=== PATIENT | male | born 1970 | race African-American/Black ===

== ENCOUNTER 2024-06-18 04:46 | Inpatient (IN) | payer MEDICARE, MEDICAID ==
[~2024-06-18] VITALS: Ht 170.2 cm; Wt 68.5 kg
[2024-06-18 06:32] LABS: BASOPHILS % 0.5 % (0.0-2.0); HEMATOCRIT. 34.2 % (42.0-52.0); HEMOGLOBIN. 11.3 g/dL (14.0-18.0); LYMPHOCYTES % 25.1 % (20.0-50.0); MEAN CORPUSCULAR HEMOGLOBIN 27.2 pg (28.0-32.0); MEAN CORPUSCULAR VOLUME 82.4 fL (80.0-94.0); MEAN PLATELET VOLUME 8.2 fl (7.4-10.4); MONOCYTES % 13.7 % (2.0-8.0); NEUTROPHILS % 59.7 % (40.0-76.0); PLATELET 173 x1000/uL (130-400); RED BLOOD CELL COUNT 4.14 mill/uL (4.7-6.1); RED CELL DISTRIBUTION WIDTH 18.3 % (11.6-14.6); WHITE BLOOD COUNT 6.4 x1000/uL (4.5-11.0)
[2024-06-18 06:36] LABS: CHLORIDE 99 mEq/L (98-107); POTASSIUM 4.3 mEq/L (3.5-5.1); SODIUM 137 mEq/L (136-145)
[2024-06-18 06:37] LABS: CALCIUM 9.1 mg/dL (8.7-10.4); CARBON DIOXIDE 26 mEq/L (21-32)
[2024-06-18 06:42] LABS: GLUCOSE 106 mg/dL (70-105); UREA NITROGEN BLOOD 46 mg/dL (9-23)
[2024-06-18 06:44] LABS: ALANINE AMINOTRANSFERASE 14 IU/L (10-49); ALBUMIN 4.3 g/dL (3.2-4.8); ASPARTATE AMINOTRANSFERASE 24 IU/L (<34); BILIRUBIN DIRECT 1.4 mg/dL (<=3.0); BILIRUBIN TOTAL 2.4 mg/dL (0.1-1.0)
[2024-06-18 06:45] LABS: PROTEIN TOTAL 7.8 g/dL (6.0-8.3)
[2024-06-18 06:49] LABS: CREATININE 8.1 mg/dL (0.6-1.3)
[2024-06-18 06:59] LABS: INR 1.1; PROTHROMBIN TIME 11.7 sec (9.6-11.0)
[2024-06-18] MEDS: MORPHINE SULFATE 4 MG/ML INJ (FOR IV/IM USE) IV STA (07:09)
[2024-06-18] MEDS: ONDANSETRON HCL 4MG/2ML INJ IV STA (07:10)
[2024-06-18] MEDS ORDERED: CLONIDINE 0.1MG TABLET PO PRN (13:00)
[2024-06-18] MEDS ORDERED: ACETAMINOPHEN 325MG TABLET PO PRN (13:00)
[2024-06-18] MEDS ORDERED: ONDANSETRON HCL 4MG/2ML INJ IV PRN ×2 (13:00→18:30)
[2024-06-18] MEDS ORDERED: DOCUSATE SODIUM 100MG CAPSULE PO PRN (13:00)
[2024-06-18] MEDS ORDERED: DEXT 5%/0.45% NACL 1000ML 1,000 ML IV SCH (13:00)
[2024-06-18] MEDS ORDERED: IPRATROPIUM/ALBUTEROL 0.5-3(2.5)MG/3ML NEB HHN PRN (13:00)
[2024-06-18] MEDS ORDERED: MORPHINE SULFATE 2 MG/ML INJ (NOT FOR IM USE) IV PRN (13:00)
[2024-06-18] MEDS ORDERED: NALOXONE HCL 0.4MG/ML VIAL IV PRN (13:15)
[2024-06-18] MEDS: PANTOPRAZOLE SODIUM 40 MG/VIAL IV SCH (13:21)
[2024-06-18] MEDS: MORPHINE SULFATE 2 MG/ML INJ (NOT FOR IM USE) IV NR (13:22)
[2024-06-18] MEDS: DILTIAZEM HCL 30MG TABLET PO SCH (15:40)
[2024-06-18] MEDS ORDERED: BUPIVACAINE HCL/PF 0.5% (5MG/ML) 10ML ONE (15:44)
[2024-06-18] MEDS: DEXT 5%/0.45% NACL KCL 20MEQ/L 1,000 ML IV SCH (15:45)
[2024-06-18] MEDS ORDERED: ACETAMINOPHEN 1000MG/100ML 100 ML IV ONE (17:33)
[2024-06-18] MEDS ORDERED: SUGAMMADEX SODIUM 200MG/2ML VIAL IV ONE (17:46)
[2024-06-18] MEDS ORDERED: ALBUMIN HUMAN 12.5G/250ML (5%) IV ONE (17:46)
[2024-06-18] MEDS: HYDROMORPHONE HCL/PF 1MG/ML INJ IV PRN (18:43)
[2024-06-18 21:00] VITALS: BP 120/76; PULSE 81; RESP 18; TEMP 36.6404
[2024-06-18] MEDS: ONDANSETRON HCL 4MG/2ML INJ IV PRN (22:37)
[2024-06-18] MEDS: MORPHINE SULFATE 4 MG/ML INJ (FOR IV/IM USE) IV PRN (22:39)
[2024-06-18] MEDS: DEXT IV SCH (22:39)
[2024-06-18] MEDS: NACL KCL IV SCH (22:39)
[2024-06-18] MEDS: POTASSIUM CHLORIDE IV SCH (22:39)
[2024-06-18 22:41] LABS: HEPATITIS B SURFACE ANTIGEN NEGATIVE (Negative)
[2024-06-18 23:02] LABS: HEPATITIS A AB IGM NEGATIVE (Negative); HEPATITIS B CORE AB IGM NEGATIVE (Negative)
[2024-06-18 23:03] LABS: HEPATITIS C AB NON REACTIVE (Neg) (Negative)
[2024-06-19] VITALS (13 sets, daily range): BP systolic 102–130; BP diastolic 60–82; PULSE 71–86; RESP 16–19; TEMP 36.22512–36.89184; O2SAT 98–100
[2024-06-19 07:41] LABS: CHLORIDE 99 mEq/L (98-107); SODIUM 135 mEq/L (136-145)
[2024-06-19 07:42] LABS: CARBON DIOXIDE 23 mEq/L (21-32)
[2024-06-19 07:43] LABS: BASOPHILS % 0.2 % (0.0-2.0); CALCIUM 8.9 mg/dL (8.7-10.4); HEMOGLOBIN. 10.1 g/dL (14.0-18.0); LYMPHOCYTES % 18.4 % (20.0-50.0); MEAN CORPUSCULAR HEMOGLOBIN 26.4 pg (28.0-32.0); MEAN CORPUSCULAR HGB CONC 31.6 g/dL (31.0-37.0); MEAN CORPUSCULAR VOLUME 83.6 fL (80.0-94.0); MEAN PLATELET VOLUME 8.3 fl (7.4-10.4); MONOCYTES % 8.6 % (2.0-8.0); NEUTROPHILS % 72.8 % (40.0-76.0); PLATELET 175 x1000/uL (130-400); RED BLOOD CELL COUNT 3.83 mill/uL (4.7-6.1); RED CELL DISTRIBUTION WIDTH 18.6 % (11.6-14.6); WHITE BLOOD COUNT 7.1 x1000/uL (4.5-11.0)
[2024-06-19 07:45] LABS: PROTHROMBIN TIME 11.6 sec (9.6-11.0); UREA NITROGEN BLOOD 57 mg/dL (9-23)
[2024-06-19 07:48] LABS: GLUCOSE 121 mg/dL (70-105)
[2024-06-19 07:49] LABS: ALANINE AMINOTRANSFERASE 10 IU/L (10-49); ALBUMIN 4.3 g/dL (3.2-4.8)
[2024-06-19 07:50] LABS: ASPARTATE AMINOTRANSFERASE 22 IU/L (<34); BILIRUBIN TOTAL 1.7 mg/dL (0.1-1.0); PHOSPHORUS 6.2 mg/dL (2.5-4.9); PROTEIN TOTAL 7.3 g/dL (6.0-8.3)
[2024-06-19 08:16] LABS: CREATININE 8.6 mg/dL (0.6-1.3)
[2024-06-19] MEDS: MORPHINE SULFATE 2 MG/ML INJ (NOT FOR IM USE) IV PRN (08:17)
[2024-06-19] MEDS: ENOXAPARIN 30MG/0.3ML SYR SUBCUT SCH (08:19)
[2024-06-20 04:00] VITALS: BP 96/58; PULSE 80; RESP 18; TEMP 36.72516; O2SAT 98
[2024-06-20] MEDS: ACETAMINOPHEN 325MG TABLET PO PRN (06:48)
[2024-06-20 08:00] VITALS: BP 89/48; PULSE 72; RESP 18; TEMP 36.3918; O2SAT 100
[2024-06-20 08:20] LABS: CLARITY URINE CLEAR (CLEAR); COLOR URINE DARK YELLOW (YELLOW); GLUCOSE URINE NEGATIVE (NEGATIVE); KETONES URINE NEGATIVE (NEGATIVE); LEUKOCYTE ESTERASE URINE 3+ (NEGATIVE); NITRITE URINE NEGATIVE (NEGATIVE); OCCULT BLOOD URINE NEGATIVE (NEGATIVE); PH URINE 5.5 (4.5-8.0); PROTEIN URINE TRACE (NEGATIVE); SPECIFIC GRAVITY URINE 1.019 (1.005-1.030)
[2024-06-20 08:56] LABS: BACTERIA URINE TRACE; RBC URINE 0-2 /hpf (0-2); SQUAMOUS EPITHELIAL CELL URINE 2+ /lpf (RARE/1+); WBC URINE 50-100 /hpf (0-2); YEAST URINE NONE SEEN
[2024-06-20] MEDS ORDERED: DIPHENHYDRAMINE 50MG/ML VIAL IV PRN (09:45)
[2024-06-20 10:04] LABS: *AMPHETAMINES SCREEN URINE NEGATIVE (NEGATIVE); *BARBITURATES SCREEN URINE NEGATIVE (NEGATIVE); *BENZODIAZEPINES SCREEN URINE NEGATIVE (NEGATIVE); *COCAINE SCREEN URINE NEGATIVE (NEGATIVE); CANNABINOID URINE SCREEN NEGATIVE (NEGATIVE); ECSTASY MDMA SCREEN URINE NEGATIVE (NEGATIVE); METHADONE URINE SCREEN NEGATIVE (NEGATIVE); OPIATES URINE SCREEN PRESUMPTIVE POSITIVE (NEGATIVE); PHENCYCLIDINE URINE SCREEN NEGATIVE (NEGATIVE)
[2024-06-20 12:00] VITALS: BP 87/54; PULSE 68; RESP 18; TEMP 36.83628; O2SAT 96
[2024-06-20] MEDS: DEXT 5%/0.45% NACL 1000ML 1,000 ML IV SCH (15:30)
[2024-06-20 16:00] VITALS: BP 103/61; PULSE 75; RESP 18; TEMP 35.78064; O2SAT 98
[2024-06-20] MEDS: DIPHENHYDRAMINE 25MG CAPSULE PO PRN (19:01)
[2024-06-20 20:00] VITALS: BP 100/63; PULSE 82; RESP 19; TEMP 36.78072; O2SAT 97
[2024-06-20] MEDS: CEFTRIAXONE 1GM/50ML 50 ML IV SCH (20:51)
[2024-06-21] VITALS (14 sets, daily range): BP systolic 95–136; BP diastolic 54–86; PULSE 68–89; RESP 16–19; TEMP 35.8362–37.05852; O2SAT 96–100
[2024-06-21 06:55] LABS: CREATININE 8.2 mg/dL (0.6-1.3)
[2024-06-21] MEDS: HYDROCODONE/ACETAMINOPHEN 5/325MG TABLET PO PRN (10:09)
[2024-06-22 08:00] VITALS: BP 107/60; PULSE 85; RESP 19; TEMP 36.50292; O2SAT 97
[2024-06-22 12:00] VITALS: BP 109/59; PULSE 86; RESP 19; TEMP 36.72516; O2SAT 97
[2024-06-22 20:00] VITALS: BP 112/66; PULSE 79; RESP 18; TEMP 37.89192; O2SAT 98
[2024-06-23] VITALS: BP 118/74; PULSE 82; RESP 18; TEMP 37.11408; O2SAT 97
[2024-06-23 04:00] VITALS: BP 120/68; PULSE 87; RESP 18; TEMP 36.55848; O2SAT 98
[2024-06-23 08:00] VITALS: BP 129/71; PULSE 80; RESP 19; TEMP 36.61404; O2SAT 99
[2024-06-23 12:00] VITALS: BP 129/71; PULSE 80; RESP 19; TEMP 36.61404; O2SAT 99
[2024-06-23 16:00] VITALS: BP 138/75; PULSE 89; RESP 18; TEMP 37.11408; O2SAT 98
[2024-06-24] VITALS (8 sets, daily range): BP systolic 101–135; BP diastolic 74–92; PULSE 62–92; RESP 18–19; TEMP 36.114–37.11408; O2SAT 98–100
[2024-06-24] MEDS: PROMETHAZINE/DEXTROMETHORPHAN 6.25-15MG/5ML PO PRN (00:04)
[2024-06-25] VITALS: BP 128/61; PULSE 78; RESP 18; TEMP 37.89192; O2SAT 95
[2024-06-25 04:00] VITALS: BP 122/62; PULSE 74; RESP 18; TEMP 37.2252; O2SAT 98
[2024-06-25 09:25] LABS: BASOPHILS % 0.7 % (0.0-2.0); EOSINOPHILS % 2.7 % (0.0-5.0); HEMOGLOBIN. 8.4 g/dL (14.0-18.0); LYMPHOCYTES % 34.5 % (20.0-50.0); MEAN CORPUSCULAR HEMOGLOBIN 26.4 pg (28.0-32.0); MEAN CORPUSCULAR HGB CONC 31.2 g/dL (31.0-37.0); MEAN CORPUSCULAR VOLUME 84.7 fL (80.0-94.0); MEAN PLATELET VOLUME 8.4 fl (7.4-10.4); MONOCYTES % 10.8 % (2.0-8.0); NEUTROPHILS % 51.3 % (40.0-76.0); PLATELET 194 x1000/uL (130-400); RED BLOOD CELL COUNT 3.19 mill/uL (4.7-6.1); RED CELL DISTRIBUTION WIDTH 17.5 % (11.6-14.6); WHITE BLOOD COUNT 6.1 x1000/uL (4.5-11.0)
[2024-06-25 09:43] LABS: CHLORIDE 105 mEq/L (98-107); POTASSIUM 6.1 mEq/L (3.5-5.1); SODIUM 136 mEq/L (136-145)
[2024-06-25 09:44] LABS: CALCIUM 8.7 mg/dL (8.7-10.4); CARBON DIOXIDE 25 mEq/L (21-32)
[2024-06-25 09:49] LABS: GLUCOSE 96 mg/dL (70-105); UREA NITROGEN BLOOD 45 mg/dL (9-23)
[2024-06-25 09:51] LABS: PHOSPHORUS 4.1 mg/dL (2.5-4.9)
[2024-06-25 12:00] VITALS: BP 105/65; PULSE 73; RESP 18; TEMP 36.9474; O2SAT 97
[2024-06-25 16:00] VITALS: BP 108/67; PULSE 70; RESP 18; TEMP 36.3918; O2SAT 98
[2024-06-25 20:00] VITALS: BP 120/67; PULSE 80; RESP 18; TEMP 37.7808; O2SAT 100
[2024-06-26] VITALS (14 sets, daily range): BP systolic 99–132; BP diastolic 62–83; PULSE 68–91; RESP 16–20; TEMP 30.72468–36.83628; O2SAT 98–100
[2024-06-27 08:00] VITALS: BP 115/74; PULSE 74; RESP 18; TEMP 37.28076; O2SAT 100
[2024-06-27 12:03] VITALS: BP 106/62; PULSE 69; RESP 17; TEMP 36.78072; O2SAT 99
[2024-06-27 16:00] VITALS: BP 122/74; PULSE 64; RESP 18; TEMP 36.83628; O2SAT 97
[2024-06-28] VITALS (11 sets, daily range): BP systolic 103–114; BP diastolic 62–72; PULSE 58–89; RESP 17–19; TEMP 36.22512–37.00296; O2SAT 97–100
[2024-06-29 16:00] VITALS: BP 110/68; PULSE 83; RESP 18; TEMP 36.89184; O2SAT 99
[2024-06-29 20:00] VITALS: BP 114/57; PULSE 70; RESP 20; TEMP 36.50292; O2SAT 99
[2024-06-30] VITALS (13 sets, daily range): BP systolic 112–136; BP diastolic 54–86; PULSE 67–76; RESP 16–20; TEMP 36.114–36.55848; O2SAT 97–100
[2024-07-01] VITALS: BP 114/64; PULSE 72; RESP 20; TEMP 36.44736; O2SAT 100
[2024-07-01 04:00] VITALS: BP 128/71; PULSE 72; RESP 20; TEMP 36.28068; O2SAT 100
[2024-07-01 08:00] VITALS: BP 108/67; PULSE 82; RESP 20; TEMP 36.72516; O2SAT 100
[2024-07-01 12:00] VITALS: BP 105/54; PULSE 73; RESP 18; TEMP 36.3918; O2SAT 100
[2024-07-01 16:00] VITALS: BP 108/61; PULSE 93; RESP 18; TEMP 36.50292; O2SAT 100
[2024-07-01 20:00] VITALS: BP 117/69; PULSE 78; RESP 20; TEMP 38.00304; O2SAT 100
[2024-07-02] VITALS (10 sets, daily range): BP systolic 78–136; BP diastolic 50–78; PULSE 71–84; RESP 17–22; TEMP 36.00288–37.39188; O2SAT 95–100
[2024-07-03] VITALS: BP 104/58; PULSE 69; RESP 20; TEMP 36.50292; O2SAT 96
[2024-07-03 04:00] VITALS: BP 100/56; PULSE 73; RESP 20; TEMP 36.61404; O2SAT 100
[2024-07-03 08:00] VITALS: BP 109/63; PULSE 71; RESP 19; TEMP 36.72516; O2SAT 99
[2024-07-03 12:00] VITALS: BP 112/67; PULSE 70; RESP 19; TEMP 36.6696; O2SAT 99
[2024-07-03 16:00] VITALS: BP 117/71; PULSE 69; RESP 19; TEMP 36.83628; O2SAT 97
[2024-07-03 20:00] VITALS: BP 110/76; PULSE 104; RESP 20; TEMP 36.61404; O2SAT 95
[2024-07-04] VITALS: BP 124/72; PULSE 75; RESP 20; TEMP 36.3918; O2SAT 99
[2024-07-04 04:00] VITALS: BP 110/69; PULSE 74; RESP 20; TEMP 36.72516; O2SAT 100
[2024-07-04 08:00] VITALS: BP 135/76; PULSE 76; RESP 19; TEMP 36.6696; O2SAT 100
[2024-07-04 12:00] VITALS: BP 122/71; PULSE 75; RESP 19; TEMP 36.72516; O2SAT 100
[2024-07-04 16:00] VITALS: BP 124/80; PULSE 73; RESP 19; TEMP 37.2252; O2SAT 99
[2024-07-04 20:00] VITALS: BP 137/81; PULSE 70; RESP 20; TEMP 36.72516; O2SAT 97
[2024-07-05] VITALS (11 sets, daily range): BP systolic 102–142; BP diastolic 43–88; PULSE 66–81; RESP 16–20; TEMP 36.22512–37.39188; O2SAT 98–100
[2024-07-06] VITALS: BP 124/67; PULSE 76; RESP 18; TEMP 36.22512; O2SAT 100
[2024-07-06 08:00] VITALS: BP 114/66; PULSE 69; RESP 20; TEMP 36.28068; O2SAT 99
[2024-07-06] MEDS: PANTOPRAZOLE 40MG DR TABLET PO NR (13:46)
[2024-07-06 16:00] VITALS: BP 105/68; PULSE 62; RESP 14; TEMP 36.83628; O2SAT 99
[2024-07-07] VITALS (14 sets, daily range): BP systolic 108–139; BP diastolic 70–84; PULSE 64–78; RESP 16–20; TEMP 36.22512–36.89184; O2SAT 98–100
[2024-07-08] VITALS: BP 115/68; PULSE 77; RESP 18; TEMP 37.00296; O2SAT 98
[2024-07-08 04:00] VITALS: BP 123/69; PULSE 69; RESP 19; TEMP 37.7808; O2SAT 98
[2024-07-08 20:00] VITALS: BP 120/70; PULSE 78; RESP 20; TEMP 36.72516; O2SAT 98
[2024-07-09] VITALS (12 sets, daily range): BP systolic 113–125; BP diastolic 50–77; PULSE 69–85; RESP 16–20; TEMP 36.6696–36.72516; O2SAT 98–99
[2024-07-09 16:31] LABS: HEMATOCRIT 22.8 % (42.0-52.0); HEMOGLOBIN 7.4 g/dL (14.0-18.0); MEAN CORPUSCULAR HEMOGLOBIN 27.7 pg (28.0-32.0); MEAN CORPUSCULAR HGB CONC 32.4 g/dL (31.0-37.0); MEAN CORPUSCULAR VOLUME 85.5 fL (80.0-94.0); PLATELET 126 x1000/uL (130-400); RED BLOOD CELL COUNT 2.66 mill/uL (4.7-6.1); RED CELL DISTRIBUTION WIDTH 15.6 % (11.6-14.6); WHITE BLOOD COUNT 5.2 x1000/uL (4.5-11.0)
[2024-07-09 16:46] LABS: POTASSIUM 4.9 mEq/L (3.5-5.1)
[2024-07-09 16:48] LABS: CALCIUM 8.5 mg/dL (8.7-10.4)
[2024-07-09 17:05] LABS: CREATININE 6.8 mg/dL (0.6-1.3)
== END 2024-07-09 17:45 | disposition home or self-care (01) | DRG 353 ==
LOC: ER 04:46 → 5WST 08:07 → EDBEDREQ 08:28 → EDBEDREQSVC 08:28 → EDBEDREQTM 08:28 → 6EST 20:21 → 6WST 07-05 19:51
PROVIDERS: ADMIT Internal Medicine; ATTEND Internal Medicine
PROC: 0WUF0JZ Supplement Abdominal Wall with Synthetic Substitute, Open Approach (ICD-10-PCS; principal; 2024-06-18)
PROC: 5A1D70Z Performance of Urinary Filtration, Intermittent, Less than 6 Hours Per Day (ICD-10-PCS; 2024-06-19)
PROC: 5A1D70Z Performance of Urinary Filtration, Intermittent, Less than 6 Hours Per Day (ICD-10-PCS; 2024-06-21)
PROC: 5A1D70Z Performance of Urinary Filtration, Intermittent, Less than 6 Hours Per Day (ICD-10-PCS; 2024-06-24)
PROC: 5A1D70Z Performance of Urinary Filtration, Intermittent, Less than 6 Hours Per Day (ICD-10-PCS; 2024-06-26)
PROC: 5A1D70Z Performance of Urinary Filtration, Intermittent, Less than 6 Hours Per Day (ICD-10-PCS; 2024-06-28)
PROC: 5A1D70Z Performance of Urinary Filtration, Intermittent, Less than 6 Hours Per Day (ICD-10-PCS; 2024-06-30)
PROC: 5A1D70Z Performance of Urinary Filtration, Intermittent, Less than 6 Hours Per Day (ICD-10-PCS; 2024-07-02)
PROC: 5A1D70Z Performance of Urinary Filtration, Intermittent, Less than 6 Hours Per Day (ICD-10-PCS; 2024-07-05)
PROC: 5A1D70Z Performance of Urinary Filtration, Intermittent, Less than 6 Hours Per Day (ICD-10-PCS; 2024-07-07)
PROC: 5A1D70Z Performance of Urinary Filtration, Intermittent, Less than 6 Hours Per Day (ICD-10-PCS; 2024-07-09)
DX: K42.0 Umbilical hernia with obstruction, without gangrene (principal); N18.6 End stage renal disease; Z59.00 Homelessness unspecified; N39.0 Urinary tract infection, site not specified; K74.60 Unspecified cirrhosis of liver; N26.1 Atrophy of kidney (terminal); Z99.2 Dependence on renal dialysis; K40.20 Bilateral inguinal hernia, without obstruction or gangrene, not specified as recurrent; E87.5 Hyperkalemia; K59.00 Constipation, unspecified; D64.9 Anemia, unspecified
CPT/HCPCS: 36415; 74176; 80048; 80076; 80305; 81003; 83036; 83605; 83735; 83880; 84100; 85025; 85027; 86705; 86709; 87340; 88302; 90935; 93005; 97116; 97162; 97166; 97530; 97535; 99285; J0696; J1171; J1200; J1650; J2270; J2405; J2470; J3480; J3490; P9041; Q0163; C1781; J0131

== ENCOUNTER 2024-10-06 09:10 | Emergency (ER) | payer MEDICARE, MEDICAID ==
[~2024-10-06] VITALS: Ht 170.2 cm; Wt 80.0 kg
[2024-10-06] VITALS (12 sets, daily range): BP systolic 139–155; BP diastolic 82–96; PULSE 65–72; RESP 9–16; TEMP 36.9; O2SAT 98–100
[2024-10-06 10:27] LABS: BASOPHILS % 1.5 % (0.0-2.0); EOSINOPHILS % 2.9 % (0.0-5.0); HEMATOCRIT. 41.3 % (42.0-52.0); HEMOGLOBIN. 13.1 g/dL (14.0-18.0); LYMPHOCYTES % 36.1 % (20.0-50.0); MEAN CORPUSCULAR HEMOGLOBIN 25.6 pg (28.0-32.0); MEAN CORPUSCULAR HGB CONC 31.7 g/dL (31.0-37.0); MEAN CORPUSCULAR VOLUME 80.8 fL (80.0-94.0); MEAN PLATELET VOLUME 9.4 fl (7.4-10.4); MONOCYTES % 8.7 % (2.0-8.0); NEUTROPHILS % 50.8 % (40.0-76.0); PLATELET 103 x1000/uL (130-400); RED BLOOD CELL COUNT 5.11 mill/uL (4.7-6.1); RED CELL DISTRIBUTION WIDTH 16.3 % (11.6-14.6); WHITE BLOOD COUNT 4.3 x1000/uL (4.5-11.0)
[2024-10-06 10:38] LABS: PROTHROMBIN TIME 11.4 sec (9.6-11.0)
[2024-10-06 10:55] LABS: POTASSIUM 4.2 mEq/L (3.5-5.1)
[2024-10-06 10:56] LABS: CALCIUM 9.1 mg/dL (8.7-10.4)
[2024-10-06 11:06] LABS: CREATININE 3.8 mg/dL (0.6-1.3)
[2024-10-06] MEDS ORDERED: LIDOCAINE HCL 1% 10 MG/ML 10ML VIAL ONE (11:16)
[2024-10-06] MEDS ORDERED: FENTANYL CITRATE/PF 50MCG/ML 2ML VIAL ONE (12:05)
[2024-10-06] MEDS: CEFAZOLIN 1000MG PREMIX 50 ML IV NR (12:05)
[2024-10-06] MEDS: FENTANYL CITRATE/PF 50MCG/ML 2ML VIAL IV ONE (12:13)
== END 2024-10-06 14:05 | disposition home or self-care (01) ==
LOC: ER 09:10
DX: T82.49XA Other complication of vascular dialysis catheter, initial encounter (principal); Z99.2 Dependence on renal dialysis
CPT/HCPCS: 36581; 80048; 85025; 85610; 36415; 77001; 99285; J3010; J0690; J1642; J2003; C1750; C1769; 36558; 99152; 99153; G0500